=== PATIENT | male | born 1965 | race Two or more races ===

== ENCOUNTER 2018-06-10 12:14 | Outpatient (CLI) | payer OTHER | END 2018-06-10 12:24 | disposition home or self-care (01) | LOC: SONOGRAMA 12:14 | DX: M25.521 Pain in right elbow (principal) ==

== ENCOUNTER 2019-08-19 12:02 | Outpatient (CLI) | payer OTHER | END 2019-08-19 13:00 | disposition home or self-care (01) | LOC: NUCLEAR 12:02 | DX: I73.9 Peripheral vascular disease, unspecified (principal) ==

== ENCOUNTER 2022-03-12 11:48 | Emergency (ER) | payer OTHER ==
[~2022-03-12] VITALS: Ht 180.3 cm; Wt 95.3 kg
[2022-03-12] MEDS ORDERED: CRESTOR5 MG (12:22)
[2022-03-12] MEDS ORDERED: DEPAKOTE ER250 MG (12:23)
[2022-03-12] MEDS ORDERED: QUETIAPINE FUM400 M1 (12:24)
== END 2022-03-12 15:39 | disposition home or self-care (01) ==
LOC: ER 11:48
DX: S49.81XA Other specified injuries of right shoulder and upper arm, initial encounter (principal); Y93.B1 Activity, exercise machines primarily for muscle strengthening; Y93.B9 Activity, other involving muscle strengthening exercises; Y92.39 Other specified sports and athletic area as the place of occurrence of the external cause; Y99.9 Unspecified external cause status